=== PATIENT | female | born 1990 | race Caucasian/White ===

== ENCOUNTER 2019-07-11 14:11 | Emergency (ER) | payer OTHER, SELFPAY ==
[2019-07-11] MEDS ORDERED: NA CHLORIDE 0.9% 1,000 ML ONE (14:56)
--- NOTE | 2019-07-11 15:18 | RAD REPORT ---
EXAM DESCRIPTION: RAD - Chest Single View - 07/11/2019 3:00 pm CLINICAL HISTORY: cough, syncope Chest pain. COMPARISON: No comparisons FINDINGS: Portable technique limits examination quality. The lungs are grossly clear. The heart is normal in size. No displaced fractures. IMPRESSION: No acute intrathoracic process suspected.
[2019-07-11 15:21] LABS: Absolute Lymphocytes (CBC) 0.9 K/uL (0.7-4.9); Basophils % 0.9 % (0-1.3); Hematocrit 41.6 % (36.0-45.0); Lymphocytes % 33.8 % (15.3-44.8); MPV 8.7 fL (7.6-11.3); RBC Red Blood Cell Count 5.11 M/uL (3.86-4.86)
[2019-07-11 15:33] LABS: Urine Blood NEGATIVE (NEG); Urine Glucose NEGATIVE (NEG); Urine Protein TRACE (NEG); Urine pH 5.5 (5.0-7.0)
[2019-07-11 15:45] LABS: Blood Morphology Comment NOT SEEN (NOT SEEN); Platelet Estimate ADEQ; White Blood Cell Scan OK
[2019-07-11 16:02] LABS: ALT/SGPT 34 U/L (12-78); AST/SGOT 31 U/L (15-37); Albumin 3.6 g/dL (3.4-5.0); Alkaline Phosphatase 56 U/L (45-117); BUN Blood Urea Nitrogen 5 mg/dL (7-18); Bicarbonate 26 mmol/L (21-32); Bilirubin Total 0.4 mg/dL (0.2-1.0); Glucose Level 92 mg/dL (74-106); Potassium 3.1 mmol/L (3.5-5.1); Protein, Total 8.5 g/dL (6.4-8.2); Sodium Level 138 mmol/L (136-145); Troponin (Emerg Dept Use Only) < 0.02 ng/mL (0.0-0.045)
--- NOTE | 2019-07-11 16:28 | ER ---
Nurse's Notes [facility] Name: Jm Cruz Age: 28 yrs Sex: Female : 1990 Arrival Date: 07/11/2019 Time: 14:12 Bed 14 Private MD: Diagnosis: Syncope and collapse;Cough;Acute upper respiratory infection, unspecified Presentation: 07/11 14:21 Chief complaint: Patient states: Syncopal event today. Had nausea with dizziness, awoke ph on the ground. Cough for 4 days. Coronavirus screen: The patient has NOT traveled to [place] in the past 14 days. Proceed with normal triage procedures. Ebola Screen: No symptoms or risks identified at this time. Initial Sepsis Screen: Does the patient meet any 2 criteria? No. Patient's initial sepsis screen is negative. Does the patient have a suspected source of infection? No. Patient's initial sepsis screen is negative. Risk Assessment: Do you want to hurt yourself or someone else? Patient reports no desire to harm self or others. 14:21 Method Of Arrival: Ambulatory ph 14:21 Acuity: ANIBAL 3 ph 14:39 Onset of symptoms was July 11, 2019. 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 - Social history:: Patient uses alcohol, only on a social basis. Patient/guardian denies using street drugs, tobacco products, Smoking status: Patient denies any tobacco usage or history of. Screenin:36 Abuse screen: Denies threats or abuse. Denies injuries from another. Nutritional ca1 screening: No deficits noted. Tuberculosis screening: No symptoms or risk factors identified. Fall Risk None identified. Assessment: 14:36 General: Appears in no apparent distress. comfortable, Behavior is calm, cooperative, ca1 appropriate for age. Pain: Denies pain. Neuro: Level of Consciousness is awake, alert, obeys commands, Oriented to person, place, time, situation, Appropriate for age Packing Room Inspector are equal bilaterally Moves all extremities. Gait is steady, Speech is normal, Facial symmetry appears normal, Pupils are PERRLA, Intact Reports blurred vision dizziness, since 11 AM a syncopal episode. Cardiovascular: Heart tones S1 S2 present Capillary refill < 3 seconds Patient's skin is warm and dry. Respiratory: Reports cough that is Airway is patent Respiratory effort is even, unlabored, Respiratory pattern is regular, symmetrical, Breath sounds are clear bilaterally. GI: Abdomen is flat, non-distended, Bowel sounds present X 4 quads. Abd is soft and non tender X 4 quads. : No signs and/or symptoms were reported regarding the genitourinary system. EENT: No signs and/or symptoms were reported regarding the EENT system. Derm: Skin is intact, is healthy with good turgor, Skin is pink, warm \T\ dry. Musculoskeletal: Circulation, motion, and sensation intact. Capillary refill < 3 seconds. 15:21 Reassessment: Patient appears in no apparent distress at this time. Patient and/or ca1 family updated on plan of care and expected duration. Pain level reassessed. Patient is alert, oriented x 3, equal unlabored respirations, skin warm/dry/pink. 16:30 Reassessment: Patient appears in no apparent distress at this time. Patient and/or ca1 family updated on plan of care and expected duration. Pain level reassessed. Patient is alert, oriented x 3, equal unlabored respirations, skin warm/dry/pink. Vital Signs: 14:21 BP 130 / 95; Pulse 82; Resp 18; Temp 98.7; Pulse Ox 99% ; Weight 53.07 kg; Height 5 ft. ph 2 in. (157.48 cm); Pain 3/10; 15:21 BP 112 / 75; Pulse 75; Resp 16 S; Pulse Ox 100% on R/A; ca1 16:00 BP 110 / 69 Supine; Pulse 74; Resp 15 S; Pulse Ox 100% on R/A; ca1 16:01 BP 114 / 78 Sitting; Pulse 67; Resp 14 S; Pulse Ox 100% ; ca1 16:02 BP 107 / 71 Standing; Pulse 84; Resp 16 S; Pulse Ox 100% on R/A; ca1 16:30 BP 105 / 77; Pulse 71; Resp 16 S; Pulse Ox 100% on R/A; ca1 14:21 Body Mass Index 21.40 (53.07 kg, 157.48 cm) ED Course: 14:12 Patient arrived in ED. as 14:24 Triage completed. ph 14:25 Arm band placed on right wrist. Patient placed in an exam room. ph 14:26 Ilan Bull PA is PHCP. [facility] 14:26 Ryan Quezada MD is Attending Physician. [facility] 14:33 Amber Vences, UZMA is Primary Nurse. ca1 14:36 Patient has correct armband on for positive identification. Bed in low position. Call ca1 light in reach. Side rails up X 1. Pulse ox on. NIBP on. Warm blanket given. 14:36 No provider procedures requiring assistance completed. ca1 14:51 Patient has correct armband on for positive identification. Placed in gown. Bed in low mh5 position. Call light in reach. Side rails up X 1. Warm blanket given. sheriff's sergeant on. Pulse ox on. NIBP on. 14:53 Urine --Ancillary (enter results) Sent. [facility] 14:53 Urine Dipstick--Ancillary (enter results) Sent. [facility] 15:02 Chest Single View XRAY In Process Unspecified. EDNV 15:07 Initial lab(s) drawn, by mn, sent to lab. Inserted saline lock: 22 gauge in left em antecubital area, using aseptic technique. Blood collected. 17:09 IV discontinued, intact, bleeding controlled, No redness/swelling at site. Pressure ca1 dressing applied. Administered Medications: 15:05 Drug: NS 0.9% 1000 ml Route: IV; Rate: 1 bolus; Site: left antecubital; em 16:30 Follow up: Response: No adverse reaction; IV Status: Completed infusion ca1 Outcome: 16:27 Discharge ordered by . elsi 17:09 Discharged to home ambulatory. ca1 17:09 Condition: stable 17:09 Discharge instructions given to patient, Instructed on discharge instructions, follow up and referral plans. Demonstrated understanding of instructions, follow-up care. 17:12 Patient left the ED. ca1 Signatures: Dispatcher [employer] EDNV Ilan Bull PA PA jmm Munoz, Edgar, RN RN Alejandra Gaspar Patricia, RN RN Zarina Gaspar [facility] Amber Vences RN RN ca1 Corrections: (The following items were deleted from the chart) 17:08 17:08 Reassessment: Patient appears in no apparent distress at this time. Patient ca1 and/or family updated on plan of care and expected duration. Pain level reassessed. Patient is alert, oriented x 3, equal unlabored respirations, skin warm/dry/pink. ca1
--- NOTE | 2019-07-11 16:28 | EDPHYS ---
Physician Documentation [facility] Name: Jm Cruz Age: 28 yrs Sex: Female : 1990 Arrival Date: 07/11/2019 Time: 14:12 Bed 14 Private MD: ED Physician Ryan Quezada HPI: 07/11 14:43 This 28 yrs old Female presents to ER via Ambulatory with complaints of jmm Passed Out Prior To Arrival. 14:43 The patient has experienced syncope, collapsed. Onset: The symptoms/episode jmm began/occurred acutely, just prior to arrival. Duration: This was a single episode, that lasted an unknown period of time. Context:. Associated injury: The patient did not suffer any apparent associated injury. Associated signs and symptoms: Pertinent negatives: abdominal pain, chest pain, not seizure, shortness of breath, vomiting, weakness. This is a 28 year old female with no chronic medical conditions that presents to the ED with complaints of syncope which occurred just prior to arrival. Patient states over the past 3 days having a cough, denies fever, vomiting, heavy vaginal bleeding, shortness of breath, chest pain. Patient states as she was walking she collapsed and states she lost consciousness for a short amount of time. . SILICATOR: 14:39 LMP 07/03/2019 ca1 Historical: - Allergies: 14:24 No Known Allergies; ph - PMHx: 14:24 None; ph - PSHx: 14:24 colonscopy with polyp removed; ph - Immunization history:: Adult Immunizations up to date, Flu vaccine is not up to date. - Social history:: Patient uses alcohol, only on a social basis. Patient/guardian denies using street drugs, tobacco products, Smoking status: Patient denies any tobacco usage or history of. ROS: 14:43 Constitutional: Negative for fever, chills, and weight loss, Cardiovascular: Negative jmm for chest pain, palpitations, and edema. 14:43 Respiratory: Positive for cough, Negative for shortness of breath. 14:43 Abdomen/GI: Negative for abdominal pain, vomiting. 14:43 Neuro: Positive for syncope, Negative for seizure activity. 14:43 All other systems are negative. Exam: 14:43 Constitutional: This is a well developed, well nourished patient who is awake, alert, jmm and in no acute distress. Head/Face: atraumatic. Eyes: EOMI, no conjunctival erythema appreciated ENT: Moist Mucus Membranes Neck: Trachea midline, Supple Chest/axilla: Normal chest wall appearance and motion. 14:43 Abdomen/GI: Non distended, soft Back: Normal ROM Skin: General appearance color normal MS/ Extremity: Moves all extremities, no obvious deformities appreciated, no edema noted to the lower extremities Neuro: Awake and alert, normal gait Psych: Behavior is normal, Mood is normal, Patient is cooperative and pleasant 14:43 Cardiovascular: Rate: normal, Rhythm: regular. 14:43 Respiratory: the patient does not display signs of respiratory distress, Respirations: normal, Breath sounds: are clear throughout. 16:24 ECG was reviewed by the Attending Physician. [facility] Vital Signs: 14:21 BP 130 / 95; Pulse 82; Resp 18; Temp 98.7; Pulse Ox 99% ; Weight 53.07 kg; Height 5 ft. ph 2 in. (157.48 cm); Pain 3/10; 15:21 BP 112 / 75; Pulse 75; Resp 16 S; Pulse Ox 100% on R/A; ca1 16:00 BP 110 / 69 Supine; Pulse 74; Resp 15 S; Pulse Ox 100% on R/A; ca1 16:01 BP 114 / 78 Sitting; Pulse 67; Resp 14 S; Pulse Ox 100% ; ca1 16:02 BP 107 / 71 Standing; Pulse 84; Resp 16 S; Pulse Ox 100% on R/A; ca1 16:30 BP 105 / 77; Pulse 71; Resp 16 S; Pulse Ox 100% on R/A; ca1 14:21 Body Mass Index 21.40 (53.07 kg, 157.48 cm) ph MDM: 14:43 Patient medically screened. [facility] 16:25 Data reviewed: vital signs, nurses notes. Counseling: I had a detailed discussion with [facility] the patient and/or guardian regarding: the historical points, exam findings, and any diagnostic results supporting the discharge/admit diagnosis, lab results, radiology results, the need for outpatient follow up, to return to the emergency department if symptoms worsen or persist or if there are any questions or concerns that arise at home. 16:26 ED course: Low risk according to [place] syncope rule. VS normal. [employer] normal. Negative D-Dimer. No chest pain. Patient is advised to follow up with Dr. Chaves for further evaluation. Patient otherwise given strict return precautions. Patient understood and agrees with the plan of care. . 07/11 14:44 Order name: CBC with Diff; Complete Time: 15:45 [facility] 07/11 14:44 Order name: CMP; Complete Time: 16:10 [facility] 07/11 14:44 Order name: D-Dimer; Complete Time: 15:30 [facility] 07/11 14:44 Order name: Troponin (emerg Dept Use Only); Complete Time: 16:10 [facility] 07/11 14:49 Order name: Urine Dipstick--Ancillary (enter results); Complete Time: 15:36 07/11 14:49 Order name: Urine --Ancillary (enter results); Complete Time: 15:36 07/11 14:34 Order name: EKG; Complete Time: 14:34 ca1 07/11 14:34 Order name: EKG - Nurse/Tech; Complete Time: 14:34 ca1 07/11 14:40 Order name: Urine Dipstick-Ancillary (obtain specimen); Complete Time: 14:47 ca1 07/11 14:40 Order name: Urine Test (obtain specimen); Complete Time: 14:47 ca1 07/11 14:44 Order name: Chest Single View XRAY; Complete Time: 15:24 [facility] 07/11 14:44 Order name: Saline Lock; Complete Time: 15:09 [facility] 07/11 15:45 Order name: CBC Smear Scan; Complete Time: 15:45 EDME 07/11 15:51 Order name: Orthostatic Blood Pressure; Complete Time: 16:04 jmm EC:24 Rate is 65 beats/min. Rhythm is regular. Right axis deviation noted. OR interval is jmm normal. QRS interval is normal. QT interval is normal. No Q waves. T waves are Normal. No ST changes noted. Reviewed by me. Administered Medications: 15:05 Drug: NS 0.9% 1000 ml Route: IV; Rate: 1 bolus; Site: left antecubital; em 16:30 Follow up: Response: No adverse reaction; IV Status: Completed infusion ca1 Disposition: 17:52 Co-signature as Attending Physician, Ryan Quezada MD Chart signed for administrative ps1 purposes. . Disposition: 07/11/19 16:27 Discharged to Home. Impression: Syncope and collapse, Cough, Acute upper respiratory infection, unspecified. - Condition is Stable. - Discharge Instructions: Syncope, Upper Respiratory Infection, Adult. - Medication Reconciliation Form, Thank You Letter, Antibiotic Education, Prescription Opioid Use, Work release form form. - Follow up: Private Physician; When: 2 - 3 days; Reason: Recheck today's complaints, Continuance of care, Re-evaluation by your physician. Signatures: Dispatcher [employer] Ilan Strauss PA PA jmm Munoz, Edgar, UZMA RN em Grecia Cunha RN RN Ryan Quezada MD MD ps1 Amber Vences RN RN ca1 Corrections: (The following items were deleted from the chart) 17:12 16:27 07/11/2019 16:27 Discharged to Home. Impression: Syncope and collapse; Cough; ca1 Acute upper respiratory infection, unspecified. Condition is Stable. Forms are Medication Reconciliation Form, Thank You Letter, Antibiotic Education, Prescription Opioid Use. Follow up: Private Physician; When: 2 - 3 days; Reason: Recheck today's complaints, Continuance of care, Re-evaluation by your physician. elsi
[2019-07-11 17:27] VITALS: TEMP 98.7
[2019-07-11 17:28] VITALS: O2SAT 100
[2019-07-11 17:33] VITALS: BP 105/77
--- NOTE | 2019-07-12 07:02 | EKG ---
Test Date: 2019-07-11 Test Time: 14:30:38 Incinerator Plant Laborer: AISHA MEASUREMENT RESULTS: Intervals: Rate: 65 TN: 132 QRSD: 80 QT: 400 QTc: 416 [place]: P: 18 TN: 132 QRS: 94 T: 50 INTERPRETIVE STATEMENTS: Normal sinus rhythm Rightward axis Borderline ECG No previous ECG available for comparison Electronically Signed On 07-12-19 07:00:31 STAKER SURVEYING by Filiberto Braun
== END 2019-07-11 17:12 | disposition home or self-care (01) ==
LOC: ER 14:11
DX: J06.9 Acute upper respiratory infection, unspecified (principal); R05 Cough; Z72.0 Tobacco use
CPT/HCPCS: 93005; 85025; 36415; 81025; 85379; 81003; 84484; 80053; 71045; 96360; 99284; J7030